=== PATIENT | male | born 1980 ===

== ENCOUNTER 2018-12-06 13:23 | Outpatient (CLI) | payer OTHER ==
[~2018-12-06 13:23] MED LIST: OXYCONTIN20 MG PO
== END 2018-12-06 13:44 | disposition home or self-care (01) ==
LOC: RAD 13:23
DX: G89.11 Acute pain due to trauma (principal); R22.31 Localized swelling, mass and lump, right upper limb; M79.641 Pain in right hand; E66.8 Other obesity